=== PATIENT | female | born 1995 | race African-American/Black ===

== ENCOUNTER 2017-01-20 21:39 | Emergency (ER) | payer MEDICAID ==
[~2017-01-20] VITALS: Ht 165.1 cm; Wt 127.0 kg
[2017-01-21] MEDS ORDERED: ONDANSETRON 4MG ODT PO STA (02:31)
[2017-01-21 02:52] LABS: BASOPHILS % 0.4 % (0.0-2.0); EOSINOPHILS % 0.7 % (0.0-5.0); HEMATOCRIT. 28.1 % (36.0-48.0); HEMOGLOBIN. 9.3 g/dL (12.0-16.0); LYMPHOCYTES % 16.7 % (20.0-50.0); MEAN CORPUSCULAR VOLUME 81.4 fL (81.0-99.0); MEAN PLATELET VOLUME 7.7 fl (7.4-10.4); MONOCYTES % 10.4 % (2.0-8.0); NEUTROPHILS % 71.8 % (40.0-76.0); PLATELET 231 x1000/uL (130-400); RED BLOOD CELL COUNT 3.45 mill/uL (4.2-5.4); RED CELL DISTRIBUTION WIDTH 13.4 % (11.6-14.6)
[2017-01-21 03:07] LABS: CARBON DIOXIDE 27 mEq/L (21-32); CHLORIDE 107 mEq/L (98-107)
[2017-01-21 04:08] LABS: CLARITY URINE CLOUDY (CLEAR); COLOR URINE YELLOW (YELLOW); GLUCOSE URINE NEGATIVE (NEGATIVE); KETONES URINE 1+ (NEGATIVE); LEUKOCYTE ESTERASE URINE 2+ (NEGATIVE); NITRITE URINE POSITIVE (NEGATIVE); OCCULT BLOOD URINE 3+ (NEGATIVE); PROTEIN URINE NEGATIVE (NEGATIVE); SPECIFIC GRAVITY URINE 1.021 (1.005-1.030)
[2017-01-21 05:30] VITALS: BP 134/63
[2017-01-21] MEDS ORDERED: ACETAMINOPHEN 325MG TABLET PO ONE (06:30)
== END 2017-01-21 07:50 | disposition home or self-care (01) ==
LOC: ER 21:39
DX: N39.0 Urinary tract infection, site not specified (principal)
CPT/HCPCS: 36415; 76705; 76801; 80053; 81001; 81025; 83690; 84702; 85025; 86850; 86900; 86901; 99285; Q0162; Z7610

== ENCOUNTER 2017-01-26 00:48 | Inpatient (IN) | payer MEDICAID ==
[~2017-01-26] VITALS: Ht 152.4 cm; Wt 126.6 kg
[2017-01-26 04:04] LABS: CLARITY URINE CLOUDY (CLEAR); COLOR URINE YELLOW (YELLOW); GLUCOSE URINE NEGATIVE (NEGATIVE); KETONES URINE NEGATIVE (NEGATIVE); LEUKOCYTE ESTERASE URINE TRACE (NEGATIVE); NITRITE URINE POSITIVE (NEGATIVE); OCCULT BLOOD URINE 3+ (NEGATIVE); PH URINE 6.5 (4.5-8.0); PROTEIN URINE TRACE (NEGATIVE); SPECIFIC GRAVITY URINE 1.027 (1.005-1.030)
[2017-01-26 07:24] LABS: BASOPHILS % 0.5 % (0.0-2.0); EOSINOPHILS % 2.3 % (0.0-5.0); HEMATOCRIT. 24.9 % (36.0-48.0); HEMOGLOBIN. 8.3 g/dL (12.0-16.0); MEAN CORPUSCULAR HEMOGLOBIN 27.1 pg (28.0-32.0); MEAN CORPUSCULAR VOLUME 81.5 fL (81.0-99.0); MONOCYTES % 10.8 % (2.0-8.0); NEUTROPHILS % 63.4 % (40.0-76.0); PLATELET 327 x1000/uL (130-400); RED BLOOD CELL COUNT 3.05 mill/uL (4.2-5.4); RED CELL DISTRIBUTION WIDTH 13.2 % (11.6-14.6)
[2017-01-26] MEDS ORDERED: ACETAMINOPHEN 325MG TABLET PO ONE (07:30)
[2017-01-26 07:39] LABS: B-HCG QUANTITATIVE 84 mIU/mL (<3); CARBON DIOXIDE 27 mEq/L (21-32); CHLORIDE 106 mEq/L (98-107)
[2017-01-26] MEDS ORDERED: SODIUM CHLORIDE 0.9% 1,000 ML IV ONE (13:36)
[2017-01-26] MEDS ORDERED: KETOROLAC 30MG/ML VIAL IV ONE (13:45)
[2017-01-26] MEDS ORDERED: ONDANSETRON HCL 4MG/2ML VIAL IV PRN (18:30)
[2017-01-26 20:17] VITALS: BP 111/54
[2017-01-26] MEDS ORDERED: FENTANYL CITRATE/PF 50MCG/ML 2ML VIAL ONE ×2 (21:07→22:15)
[2017-01-26] MEDS ORDERED: MIDAZOLAM HCL 2 MG/2 ML VIAL ONE (21:07)
[2017-01-26] MEDS ORDERED: PROPOFOL 200MG/20ML VIAL IV ONE (21:07)
[2017-01-26] MEDS ORDERED: ROCURONIUM BROMIDE 10MG/ML VIAL 5ML IV ONE (21:09)
[2017-01-26] MEDS ORDERED: SUCCINYLCHOLINE CHLORIDE 200MG/10ML VIAL IV ONE (21:13)
[2017-01-26] MEDS ORDERED: SODIUM CHLORIDE 0.9% 10ML VIAL ONE (21:22)
[2017-01-26] MEDS ORDERED: CEFAZOLIN SODIUM 1000MG/VIAL ONE (21:22)
[2017-01-26] MEDS ORDERED: ONDANSETRON HCL 4MG/2ML VIAL ONE (21:38)
[2017-01-26] MEDS ORDERED: DEXAMETHASONE 4MG/ML 1ML VIAL ONE (21:38)
[2017-01-26] MEDS ORDERED: METOCLOPRAMIDE HCL 10MG/2ML VIAL ONE (21:38)
[2017-01-26] MEDS ORDERED: SKIN ADHESIVE 0.7 GM EA TOP ONE (21:57)
[2017-01-26] MEDS ORDERED: GLYCOPYRROLATE 0.2 MG/ML 2ML VIAL ONE (21:59)
[2017-01-26] MEDS ORDERED: MORPHINE SULFATE 4 MG/ML CPJ (NOT FOR IM USE) IV PRN (22:00)
[2017-01-26] MEDS ORDERED: KETOROLAC 30MG/ML VIAL IV PRN (22:15)
[2017-01-27 04:00] VITALS: BP 116/68
[2017-01-27] MEDS: DEXT 5%/0.45% NACL 1000ML 1,000 ML IV SCH ×2 (05:31→16:00)
[2017-01-27] MEDS: MORPHINE SULFATE 4 MG/ML CPJ (NOT FOR IM USE) IV PRN ×3 (05:41→16:00)
[2017-01-27 07:29] LABS: HEMATOCRIT. 28.1 % (36.0-48.0); HEMOGLOBIN. 8.9 g/dL (12.0-16.0); MEAN PLATELET VOLUME 7.5 fl (7.4-10.4); PLATELET 400 x1000/uL (130-400); RED BLOOD CELL COUNT 3.43 mill/uL (4.2-5.4); RED CELL DISTRIBUTION WIDTH 13.6 % (11.6-14.6)
[2017-01-27 08:00] VITALS: BP 115/73
[2017-01-27 08:26] LABS: CHLORIDE 105 mEq/L (98-107)
[2017-01-27 08:43] LABS: CARBON DIOXIDE 23 mEq/L (21-32)
[2017-01-27 12:00] VITALS: BP 125/70
[2017-01-27 16:00] VITALS: BP 127/69
[2017-01-27 20:34] VITALS: BP 106/50
[2017-01-27 20:45] LABS: PLATELET ESTIMATE NORMAL
[2017-01-28 00:33] VITALS: BP 113/66
[2017-01-28] MEDS: DEXT 5%/0.45% NACL 1000ML 1,000 ML IV SCH (00:56)
[2017-01-28] MEDS: MORPHINE SULFATE 4 MG/ML CPJ (NOT FOR IM USE) IV PRN (00:57)
[2017-01-28 04:00] VITALS: BP 103/57
[2017-01-28 08:00] VITALS: BP 116/70
[2017-01-28] MEDS: OXYCODONE HCL/ACETAMINOPHEN 5/325MG TABLET PO PRN ×2 (08:42→17:15)
[2017-01-28 12:00] VITALS: BP 134/71
[2017-01-28 16:00] VITALS: BP 134/69
[2017-01-28 20:00] VITALS: BP 123/65
[2017-01-29] VITALS: BP 123/69
[2017-01-29] MEDS: OXYCODONE HCL/ACETAMINOPHEN 5/325MG TABLET PO PRN ×2 (00:30→08:45)
[2017-01-29 04:00] VITALS: BP 122/70
[2017-01-29 08:00] VITALS: BP 120/72
[2017-01-29 09:58] VITALS: BP 123/60
[2017-01-29 12:00] VITALS: BP 127/65
== END 2017-01-29 12:55 | disposition home or self-care (01) | DRG 545 ==
LOC: ER 00:49 → 6EST 11:34 → ENRESERV 15:55
PROVIDERS: ADMIT Obstetrics & Gynecology; ATTEND Obstetrics & Gynecology
PROC: 0UB60ZZ Excision of Left Fallopian Tube, Open Approach (ICD-10-PCS; 2017-01-26)
PROC: 10T20ZZ Resection of Products of Conception, Ectopic, Open Approach (ICD-10-PCS; principal; 2017-01-26 20:00)
DX: O00.90 Unspecified ectopic pregnancy without intrauterine pregnancy (principal); Z87.891 Personal history of nicotine dependence
CPT/HCPCS: 36415; 71010; 76830; 76856; 80048; 80053; 81001; 81025; 84702; 85025; 88302; 96361; 96374; 99285; A4216; J0330; J0690; J1100; J1885; J2250; J2270; J2405; J2704; J2765; J3010; J3490; J7030